=== PATIENT | female | born 1950 | race Two or more races ===

== ENCOUNTER 2021-01-29 12:30 | Inpatient (IN) | payer OTHER ==
[~2021-01-29] VITALS: Ht 157.5 cm; Wt 97.1 kg
[2021-01-29] MEDS ORDERED: SYNTHROID75 MCG PO (16:45)
[2021-01-29] MEDS ORDERED: COZAAR100 MG PO (16:45)
[2021-01-29] MEDS ORDERED: NIFEDIPINE ER30 MG PO (16:46)
[2021-01-31] MEDS ORDERED: ATORVASTATIN CA80 MG (09:41)
[2021-01-31] MEDS ORDERED: LATANOPROST2.5 ML (09:41)
== END 2021-02-03 13:22 | disposition home or self-care (01) | DRG 741 ==
LOC: O/R 01-31 06:40 → OB/GYN 01-31 06:40 → SURH 01-31 07:00 → OB/GYN 01-31 13:48
PROVIDERS: ADMIT Specialist; ATTEND Specialist
PROC: 0UT20ZZ Resection of Bilateral Ovaries, Open Approach (ICD-10-PCS; 2021-01-31)
PROC: 0UT70ZZ Resection of Bilateral Fallopian Tubes, Open Approach (ICD-10-PCS; 2021-01-31)
PROC: 07BC0ZZ Excision of Pelvis Lymphatic, Open Approach (ICD-10-PCS; 2021-01-31)
PROC: 0UT90ZZ Resection of Uterus, Open Approach (ICD-10-PCS; principal; 2021-01-31 07:00)
DX: C54.1 Malignant neoplasm of endometrium (principal); N83.312 Acquired atrophy of left ovary; N83.311 Acquired atrophy of right ovary; I10 Essential (primary) hypertension; E03.9 Hypothyroidism, unspecified